=== PATIENT | male | born 1955 | race Caucasian/White ===

== ENCOUNTER → 2017-07-02 | Outpatient (CLI) | payer OTHER ==
[~2017-07-02] MED LIST: REGADENOSON 0.4 MG/5 ML SYRINGE ONE
== END | disposition home or self-care (01) ==
LOC: CFH 07:10
PROVIDERS: ATTEND Internal Medicine Cardiovascular Disease
DX: I44.7 Left bundle-branch block, unspecified (principal); I35.8 Other nonrheumatic aortic valve disorders; R42 Dizziness and giddiness
CPT/HCPCS: 78452; 93017; 93306; A9502; J2785

== ENCOUNTER 2017-08-11 00:13 | Emergency (ER) | payer OTHER ==
[~2017-08-11] VITALS: Ht 162.6 cm; Wt 68.4 kg
[2017-08-11] MEDS ORDERED: SODIUM CHLORIDE FLUSH 10ML SYR IVF ONE (01:00)
[2017-08-11] MEDS ORDERED: SODIUM CHLORIDE 0.9% 1,000ML IVBOLUS ONE (01:00)
[2017-08-11 01:12] LABS: HEMATOCRIT 40.4 % (39.2-51.8); HEMOGLOBIN 13.8 g/dL (13.7-18.0); WHITE BLOOD COUNT 6.5 x10^3/uL (3.4-10)
[2017-08-11 01:23] LABS: BLOOD UREA NITROGEN 13 mg/dL (7-18)
[2017-08-11 01:29] LABS: RAPID INFLUENZA A Negative (Negative); RAPID INFLUENZA B Negative (Negative)
[2017-08-11 03:29] VITALS: BP 104/66
== END 2017-08-11 03:32 | disposition home or self-care (01) ==
LOC: ED 01:18
DX: J06.9 Acute upper respiratory infection, unspecified (principal); Z88.5 Allergy status to narcotic agent
CPT/HCPCS: 36415; 71020; 80048; 82040; 85025; 87400; 96360; 96361; 99285; J7030